=== PATIENT | female | born 2005 | race Caucasian/White ===

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

== ENCOUNTER 2024-07-06 09:25 | Outpatient (CLI) | payer OTHER, SELFPAY | END 2024-07-06 09:26 | disposition home or self-care (01) | LOC: ANHLAB 09:29 | PROVIDERS: PCP Family Medicine; Visit Provider Obstetrics & Gynecology | DX: R10.2 Pelvic and perineal pain (principal); Z01.818 Encounter for other preprocedural examination | CPT/HCPCS: 36415; 86850; 86900; 86901 ==

== ENCOUNTER 2024-07-10 00:49 | Day surgery (SDC) | payer OTHER, SELFPAY ==
[2024-07-01 15:12] VITALS: BMI 23.9
--- NOTE | 2024-07-01 15:18 | PC.NURSE ---
Report to the Outpatient Waiting Room, entrance under the green pavilion located off [facility], at time _1000_ on date _[id number]_. Planned Procedure Time: _1200_.? Time changes happen often and if your time is changed the preop area will call you the afternoon before. - You and your visitor will be asked to self-screen and do not enter if you have any COVID symptoms. Please call surgeon if you need to reschedule. - A mask is optional within the hospital at this time. Patients may have clear liquids (water, carbonated beverages, clear teas, apple juice) until 3 hours prior to surgery with a maximum of 20 ounces. - No food from midnight until time of surgery and no smoking Take only the following medications with a SIP of water on the morning of surgery__None DO NOT STOP ANY OF YOUR OTHER PRESCRIPTION MEDICATIONS PRIOR TO SURGERY EXCEPT THE FOLLOWING Medications to discontinue per physician __None Please no make-up, nail malay, hairspray, perfume, deodorant, or body powder the day of surgery.? No jewelry (including any body piercings) or valuables the day of surgery, leave them at home.? Please take a shower or bath the night before, or the morning of, surgery with an antibacterial soap.? Wear comfortable, loose fitting clothing.? - Jewelry must be removed prior to entering the operating room.? Rings and piercings that are not removed may be cut off. - The hospital will not accept responsibility for valuables.? - Please leave all valuables, including medications, at home the day of surgery. If you are going home after surgery, a licensed [employer] company truck driver must drive you home.? - NO public transportation without another adult if you receive anesthesia. - We recommend that an adult stay with you for 24 hours following discharge. - We also recommend that you do not drive, make important decision, drink alcoholic beverages, or take any drugs that were not prescribed by your health care provider for at least 24 hours after your discharge time. Follow any additional instructions given to you from your surgeon. Telephone instructions given to __Abby__and asked if any additional questions and then verbalized understanding. Patient advised to call surgeon office or pre surgery nurse liaison [phone] if any additional questions.
[2024-07-10] VITALS (11 sets, daily range): BP systolic 106–121; BP diastolic 53–72; PULSE 69–106; RESP 12–20; TEMP 36.6–36.8; O2SAT 94–100
--- NOTE | 2024-07-10 08:52 | P.HP_ITS ---
H&P: HPI History of Present Illness Date/Time: 07/10/24 08:52 Chief Complaint: Pain Narrative: 19 y/o nulligravida with longstanding pelvic pain. We have tried conservative approaches, including analgesics and contraceptives, with little success. I have recommended pelvic floor physical therapy on several occasions, and she has refused. She desires surgical evaluation with laparoscopy. Review of Systems Review of Systems: All systems reviewed & are unremarkable except as noted in HPI and below PMFSH Past Medical History Medical History Anxiety Bright red blood per rectum Epigastric pain Irritable bowel syndrome with diarrhea Nausea Tobacco user Surgical History Surgical History History of appendectomy [place] teeth removed Family History Family History Father Cancer Grandparent Hypertension Heart problem Mother Asthma Social History Social History Years smoked: 3 Smoking status: Current some day smoker Tobacco type: e-cigarettes/vaping Alcohol intake: current Alcohol use details: occasional Substance use: never Substance use type: does not use Do You Feel Safe in your Home?: Yes Lack of Transportation: No Lack of Food: Never True Current Housing: I Have Housing Concerned About Future Housing: No Difficulty Paying Gas/Electric Bills: No Difficulty Paying for Meds: No Currently Unemployed: No Education: High School Diploma/GED Difficulty w/ Childcare or Family Care: No Living arrangements: with family Spiritual care concerns: No Meds Home Medications and Allergies Home Medications Medication Instructions Recorded Confirmed Type cetirizine 10 mg capsule (Zyrtec) 10 mg PO DAILY PRN allergies 11/06/23 07/01/24 History omeprazole 20 mg capsule,delayed 20 mg PO .daily #30 caps 12/27/23 07/01/24 Rx release bupropion HCl 150 mg 24 hr tablet, 150 mg PO QAM #30 tabs 06/05/24 07/01/24 Rx extended release (Wellbutrin XL) norgestimate-ethinyl estradiol 1 tablet PO DAILY 07/01/24 07/01/24 History 0.18 mg/0.215mg/0.25mg-35 mcg(28)tablet (Ortho Tri-Cyclen (28)) Allergies Allergy/AdvReac Type Severity Reaction Status Date / Time No Known Allergies Allergy Verified 07/01/24 15:09 Exam Const: Orientation/consciousness: patient oriented x3 Other: Well-developed, well-nourished female in no acute distress. Neck: Thyroid: thyroid normal Lymphatic: no lymphadenopathy noted (in neck, axilla or inguinal nodes) Resp: Effort & Inspection: normal respiratory effort Auscultation: clear to auscultation bilaterally Cardio: Rate: regular rate Rhythm: regular rhythm Heart sounds: S1 normal heart sound present and S2 normal heart sound present GI: Other: ABD: Soft, nontender, nondistended. No guarding or rebound tenderness. No hepatosplenomegaly. : General: Yes no CVA tenderness Other: External genitalia: normal female hair distribution, without lesion. Urethral meatus: no lesion, non prolapsed. Bladder: no mass, nontender Vagina: well-estrogenized, without lesion or discharge. No cystocele or rectocele. High tone of the pelvic musculature, with tenderness along the o bturator internus muscles bilaterally. Cervix: no lesion or discharge. No cervical motion tenderness. Uterus: small, anteverted, freely mobile, nontender Adnexa: no mass or tenderness. Anus/perineum: no lesions, nontender Back/Spine/Pelvis: Back: no CVA tenderness Skin: General skin exam: normal color and no rashes or lesions noted Neuro: General: patient oriented x3 Extrem: Other: Extremities: nontender with no edema Psych: Mental Status: mental status grossly normal Affect: normal affect Assessment and Plan Assessment and plan (1) Pelvic pain in female: Code(s): R10.2 - Pelvic and perineal pain Status: Acute Assessment and Plan: A: Longstanding pelvic pain. P: Because of the longstanding nature of her pain, she is interested in surgical evaluation. I have offered her diagnostic laparoscopy. She understands risks of surgery to include risks of anesthesia, risks of pain, infection, bleeding, blood products, thromboembolic phenomena and damage to adjacent structures such as bowel, bladder, ureters, blood vessels and nerves. She understands all these risks and elects to proceed with surgery.
[2024-07-10] MEDS: ACETAMINOPHEN 500 MG TABLET 1000 MG PO (10:48)
[2024-07-10] MEDS: KETOROLAC 15 MG/ML VIAL (*BKC) IV PUSH (10:49)
[2024-07-10 10:57] LABS: BEDSIDEPREGUCG Negative (Negative)
--- NOTE | 2024-07-10 11:41 | WPDHPUPDATE1 ---
History and Physical Update Update Date/Time: 07/10/24 11:41 History and Physical has been reviewed, including an updated exam of the patient. There are NO changes in the patient's condition. Risks, benefits, and alternatives have been discussed and questions answered. Patient agrees to proceed with procedure.
--- NOTE | 2024-07-10 11:59 | WPDANESEPPF ---
Anes - Initial Pre Proc Eval Procedure: Operation Date: 07/10/24 12:00 Proposed Procedures p Diagnostic Laparoscopy - Sonu Felix MD Date/Time: 07/10/24 11:59 Surgeon: Sonu Felix MD Pre Op Diagnosis: pelvic pain, dyspareunia Patient Data Age: 19 Gender: F Height: 1.75 m Weight: 75.9 kg Last Vital Signs Temp 97.9 F 07/10/24 10:15 Pulse 80 07/10/24 10:15 Resp 18 07/10/24 10:15 BP 117/66 07/10/24 10:15 Pulse Ox 99 07/10/24 10:15 O2 Del Method Room Air 07/10/24 10:15 Allergies Allergy/AdvReac Type Severity Reaction Status Date / Time No Known Allergies Allergy Verified 07/10/24 10:47 Home Medications Medication Instructions Recorded Confirmed Type cetirizine 10 mg capsule (Zyrtec) 10 mg PO DAILY PRN allergies 11/06/23 07/10/24 History omeprazole 20 mg capsule,delayed 20 mg PO .daily #30 caps 12/27/23 07/10/24 Rx release bupropion HCl 150 mg 24 hr tablet, 150 mg PO QAM #30 tabs 06/05/24 07/10/24 Rx extended release (Wellbutrin XL) norgestimate-ethinyl estradiol 1 tablet PO DAILY 07/01/24 07/10/24 History 0.18 mg/0.215mg/0.25mg-35 mcg(28)tablet (Ortho Tri-Cyclen (28)) Laboratory Tests 07/10/24 10:15 POC Urine HCG, Qual Negative (Negative) Patient hx anesthesia problems: none Family hx anesthesia problems: none Results Review: All pre-operative results and documents have been reviewed as part of the pre-operative evaluation. [facility] Past Medical History Medical History Anxiety Bright red blood per rectum Epigastric pain Irritable bowel syndrome with diarrhea Nausea Tobacco user Surgical History Surgical History History of appendectomy [place] teeth removed Family History Family History Father Cancer Grandparent Hypertension Heart problem Mother Asthma Social History Social History Years smoked: 3 Smoking status: Current some day smoker Tobacco type: e-cigarettes/vaping Alcohol intake: current Alcohol use details: occasional Substance use: never Substance use type: does not use Do You Feel Safe in your Home?: Yes Lack of Transportation: No Lack of Food: Never True Current Housing: I Have Housing Concerned About Future Housing: No Difficulty Paying Gas/Electric Bills: No Difficulty Paying for Meds: No Currently Unemployed: No Education: High School Diploma/GED Difficulty w/ Childcare or Family Care: No Living arrangements: with family Spiritual care concerns: No Anes - Eval Final PreProcedure Day of Procedure 07/10/24 11:59 Patient weight: normal Heart: regular rate and rhythm Lungs: clear to auscultation Airway: Mallampati scale class II Neurological: alert and oriented Last oral intake: >/= 8 hours ASA classification: II Emergent: no Anesthetic plan: proceed Anesthesia type and monitoring: general ETT and standard monitoring Results Review: All pre-operative results and documents have been reviewed as part of the pre-operative evaluation. Informed Consent: The patient's anesthetic plan and its attendant risks and benefits were discussed with the patient/family/POA. Questions were solicited and answers provided to the satisfaction of the patient/family/POA.
--- NOTE | 2024-07-10 12:58 | W.PM.PROC2 ---
Procedure Note - Detailed Date of Procedure 07/10/24 Pre-op Diagnosis Pelvic pain Post-op Diagnosis Same Procedure Performed Diagnostic laparoscopy Biopsy of serosal surface of the left ovary Surgeon Sonu Felix MD Anesthesia General Findings Small, firm nodule on serosa of left ovary approximately 10 x 8 x 8 mm. Otherwise, unremarkable uterus, bilateral tubes and ovaries, bilateral round and uterosacral ligaments, anterior and posterior cul de sac. Description of Procedure The patient was taken to the operating room where general endotracheal anesthesia was administered. She was prepared and draped in the usual sterile fashion in the dorsal lithotomy position. The bladder was drained with a red rubber catheter. A sterile speculum was inserted into the vagina and the anterior lip of the cervix was grasped with a single-toothed tenaculum. The acorn uterine manipulator was placed. The speculum was withdrawn. Gloves were changed and attention was turned to the abdomen. An infraumbilical skin incision was made with a scalpel. The abdomen was tented and a 5 millimeter bladeless trocar trocar was advanced under direct laparoscopic visualization. Pneumoperitoneum was administered using carbon dioxide gas. A survey of the pelvis and abdomen yielded the findings noted above. A second 5 mm port was placed under direct laparoscopic visualization. A small punch biopsy was taken of the left ovarian nodule, passed off to be sent to pathology. Hemostasis was excellent. The trocars were withdrawn and the gas was allowed to escape. The skin incision was reapproximated using 4-0 Vicryl in interrupted subcuticular fashion. Dermaflex was applied externally. The vaginal instrumentation was withdrawn and hemostasis was excellent here as well. Sponge, lap, needle and instrument counts were correct. The patient was awakened and taken to recovery in stable condition. I was present and scrubbed through the entire procedure. Implants None Estimated Blood Loss 5 Drains No Packing No Pathology Yes (Biopsy of nodule on serosal surface of left ovary) Complications None Condition Stable Disposition PACU
[2024-07-10] MEDS: LACTATED RINGERS 1,000 ML 30 ML IV CONT ×2 (13:09)
[2024-07-10] MEDS: fentaNYL CITRATE INJ (*CRX) 100 MCG/2 ML VIAL 25 MCG IV PUSH ×6 (13:19→14:19)
[2024-07-10] MEDS: diphenhydrAMINE HCl INJ 50 MG/ML VIAL 12.5 MG IV PUSH ×2 (13:23→13:47)
[2024-07-10] MEDS: oxyCODONE HCL (*CRX) 5 MG TAB IR PO (14:37)
== END 2024-07-10 15:25 | disposition home or self-care (01) ==
PROVIDERS: PCP Family Medicine; Visit Provider Obstetrics & Gynecology
PROC: (CPT 49320; principal; 2024-07-10 12:00)
DX: D27.1 Benign neoplasm of left ovary (principal); G89.18 Other acute postprocedural pain; F41.9 Anxiety disorder, unspecified; K58.0 Irritable bowel syndrome with diarrhea; F17.290 Nicotine dependence, other tobacco product, uncomplicated; Z98.890 Other specified postprocedural states; Z80.9 Family history of malignant neoplasm, unspecified; Z82.49 Family history of ischemic heart disease and other diseases of the circulatory system
CPT/HCPCS: 49321; 88305; A9270; J1100; J1200; J1885; J2003; J2250; J2405; J2704; J3010; J7030; J7120